=== PATIENT | male | born 1990 | race Caucasian/White ===

== ENCOUNTER 2018-07-16 13:08 | Emergency (ER) | payer OTHER ==
[~2018-07-16] VITALS: Ht 172.7 cm; Wt 77.3 kg
[2018-07-16] MEDS ORDERED: LIDOCAINE/PF 1% 5 ML VIAL INJ ONE (14:45)
[2018-07-16] MEDS ORDERED: PERTUSS(ACELL),DIPH,TET VAC/PF 0.5 ML VIAL IM ONE (14:45)
[2018-07-16] MEDS ORDERED: BACITRACIN 0.9 GM PACKET OINTMENT TP ONE (14:45)
[2018-07-16 16:49] VITALS: BP 128/71
== END 2018-07-16 16:51 | disposition home or self-care (01) ==
LOC: EMS 13:08
DX: S61.512A Laceration without foreign body of left wrist, initial encounter (principal); F17.210 Nicotine dependence, cigarettes, uncomplicated; W22.8XXA Striking against or struck by other objects, initial encounter; Y93.89 Activity, other specified; Y92.89 Other specified places as the place of occurrence of the external cause; Y99.8 Other external cause status
CPT/HCPCS: 12002; 73110; 90471; 90715; 99284; 99406; J3490

== ENCOUNTER 2018-07-23 13:15 | Emergency (ER) | payer OTHER ==
[~2018-07-23] VITALS: Ht 172.7 cm; Wt 77.3 kg
[2018-07-23 13:58] VITALS: BP 125/79
== END 2018-07-23 14:27 | disposition home or self-care (01) ==
LOC: EMS 13:16
DX: S51.812D Laceration without foreign body of left forearm, subsequent encounter (principal); F17.210 Nicotine dependence, cigarettes, uncomplicated; X58.XXXD Exposure to other specified factors, subsequent encounter
CPT/HCPCS: 99281

== ENCOUNTER 2018-07-23 23:14 | Emergency (ER) | payer OTHER ==
[~2018-07-23] VITALS: Ht 172.7 cm; Wt 72.7 kg
[2018-07-24] MEDS ORDERED: BACITRACIN 0.9 GM PACKET OINTMENT TP ONE (00:45)
[2018-07-24 01:26] VITALS: BP 130/87
== END 2018-07-24 01:28 | disposition home or self-care (01) ==
LOC: EMS 23:16
DX: T81.33XA Disruption of traumatic injury wound repair, initial encounter (principal); F17.210 Nicotine dependence, cigarettes, uncomplicated; Y83.8 Other surgical procedures as the cause of abnormal reaction of the patient, or of later complication, without mention of misadventure at the time of the procedure; Y92.89 Other specified places as the place of occurrence of the external cause
CPT/HCPCS: 99283